=== PATIENT | female | born 2000 | race African-American/Black ===

== ENCOUNTER 2018-10-09 23:57 | Emergency (ER) | payer OTHER ==
[~2018-10-09] VITALS: Ht 160 cm; Wt 58.2 kg
[2018-10-10 00:22] VITALS: BP 112/70
== END 2018-10-10 01:01 | disposition left against medical advice (07) ==
LOC: EMS 23:57
DX: M79.644 Pain in right finger(s) (principal); Z53.21 Procedure and treatment not carried out due to patient leaving prior to being seen by health care provider